=== PATIENT | male | born 1985 | race Caucasian/White ===

== ENCOUNTER → 2017-03-24 | Outpatient (CLI) | payer BC, OTHER ==
[2017-03-24 15:41] LABS: SEMEN TIME OF COLLECTION 1333
[2017-03-24 15:42] LABS: DAYS OF ABSTINENCE 7; METHOD OF COLLECTION MASTURBATION; SEMEN COLOR GRAY OR GRAY-WHITE (GRY/GRYWHTE); SEMEN VOLUME 0.7 ML (>1.5); TYPE OF SPECIMEN CONTAINER STERILE CUP
[2017-03-24 15:43] LABS: SPERM VIABILITY STAIN NOT PERFORMED % (>58%)
== END | disposition home or self-care (01) ==
LOC: C.LAB 14:33
DX: N46.9 Male infertility, unspecified (principal)